=== PATIENT | male | born 1955 | race Caucasian/White ===

== ENCOUNTER 2020-02-20 12:18 | Outpatient (CLI) | payer OTHER ==
[~2020-02-20] VITALS: Ht 188 cm; Wt 93.2 kg
[2020-02-20 13:30] VITALS: BP 130/82; Ht 188 cm; Wt 93.2 kg
--- NOTE | 2020-02-20 15:40 | NUR ---
PIV DC'D WITH TIP INTACT, PATIENT DRESSED IN PERSONAL CLOTHING. DISCHARGE INSTRUCTIONS REVIEWED WITH PATIENT, DISCHARGED VIA WHEELCHAIR TO PRIVATE VEHICLE WITH SPOUSE
== END 2020-02-20 15:40 | disposition home or self-care (01) ==
LOC: D.MRI 12:18
PROVIDERS: ATTEND Orthopaedic Surgery
DX: M25.551 Pain in right hip (principal)